=== PATIENT | female | born 1945 | race Hispanic/Latino ===

== ENCOUNTER 2022-12-26 19:39 | Inpatient (IN) | payer BC, MEDICARE ==
[2022-12-26 20:21] LABS: Hemoglobin 14.2 g/dL (12.0-16.0); Mean Corpuscular HGB CONC 34.4 g/dL (32.0-36.0); Mean Corpuscular Hemoglobin 30.8 pg (27.0-31.0); Mean Corpuscular Volume 89.6 fl (78.0-98.0); Mean Platelet Volume 8.4 fL (7.4-10.4); Platelet Count 288 10x3/uL (130-400); RBC Distribution Width 12.6 % (11.5-14.5); Red Blood Cell (RBC) Count 4.62 mill/uL (4.20-5.40); White Blood Cell (WBC) Count 23.4 10x3/uL (4.8-10.8)
[2022-12-26] MEDS ORDERED: Morphine 2 MG/ML VIAL ONE (20:31)
[2022-12-26] MEDS ORDERED: Ondansetron PF 4 MG/2 ML Vial ONE (20:31)
[2022-12-26] MEDS ORDERED: diphenhydrAMINE 50 MG/ML VIAL ONE (20:31)
[2022-12-26] MEDS ORDERED: Famotidine/PF 20 mg/2ml Vial ONE (20:32)
[2022-12-26] MEDS ORDERED: methylPREDNISolone Sod Succ 40 MG VIAL ONE (20:32)
[2022-12-26 20:38] LABS: Band 15 % (5-11); Lymphocytes 11 % (21-51); MDiff Complete? YES; Monocytes 2 % (0-10); Neutrophil 72 % (42-75); Platelet Morphology Comment Appears Adequate; RBC Morphology Normal
[2022-12-26 20:43] LABS: ALT (SGPT) 113 U/L (8-55); AST (SGOT) 175 U/L (5-34); Albumin 4.7 g/dL (3.4-4.8); Alkaline Phosphatase 192 U/L (40-110); Anion Gap 13 mmol/L (10-20); BUN (Urea Nitrogen) 15 mg/dL (9.8-20.1); Bilirubin, Total 1.6 mg/dL (0.2-1.2); Calc. Creatinine Clearance 0 mL/min (70-130); Calcium 9.8 mg/dL (7.8-10.44); Carbon Dioxide 25 mmol/L (23-31); Chloride 104 mmol/L (98-107); Estimated GFR 73; Globulin 3.5 g/dL (2.4-3.5); Glucose 133 mg/dL (83-110); Potassium 3.6 mmol/L (3.5-5.1); Protein, Total 8.2 g/dL (5.8-8.1); Sodium 138 mmol/L (136-145)
[2022-12-26 20:57] LABS: Lipase 7816 U/L (8-78)
[2022-12-26] MEDS ORDERED: Ondansetron ODT 4 MG TAB PO PRN (23:45)
[2022-12-26] MEDS ORDERED: Dextrose 5%-Lactated Ringers 1,000 ML IV SCH (23:45)
[2022-12-26] MEDS ORDERED: Morphine 2 MG/ML VIAL SLOW IVP PRN (23:48)
[2022-12-27] MEDS ORDERED: Ketorolac Tromethamine 30 MG/ML VIAL ONE (01:15)
[2022-12-27 01:55] LABS: Bilirubin Negative (Negative); Blood, Urine Negative (Negative); Clarity Clear (Clear); Glucose, Urine (Dipstick) Normal (Negative); Ketone, Urine 20 mg/dL (Negative); Leukocyte Negative Leu/uL (Negative); Nitrite Negative (Negative); Protein, Urine (Dipstick) Negative (Neg-Trace); Specific Gravity, Urine 1.027 (1.002-1.036); Urobilinogen Normal mg/dL (Less than 2)
[2022-12-27 02:43] VITALS: BMI 29.7
[2022-12-27] MEDS: Famotidine/PF 20 mg/2ml Vial SLOW IVP SCH ×2 (08:05→21:44)
[2022-12-27 08:10] LABS: Hemoglobin 12.1 g/dL (12.0-16.0); Mean Corpuscular Hemoglobin 29.2 pg (27.0-31.0); Mean Corpuscular Volume 91.5 fl (78.0-98.0); Mean Platelet Volume 8.4 fL (7.4-10.4); Platelet Count 273 10x3/uL (130-400); RBC Distribution Width 12.6 % (11.5-14.5); Red Blood Cell (RBC) Count 4.14 mill/uL (4.20-5.40); White Blood Cell (WBC) Count 20.2 10x3/uL (4.8-10.8)
[2022-12-27 08:30] LABS: ALT (SGPT) 229 U/L (8-55); AST (SGOT) 201 U/L (5-34); Albumin 3.8 g/dL (3.4-4.8); Alkaline Phosphatase 180 U/L (40-110); Anion Gap 12 mmol/L (10-20); BUN (Urea Nitrogen) 13 mg/dL (9.8-20.1); Bilirubin, Total 2.5 mg/dL (0.2-1.2); Calc. Creatinine Clearance 71 mL/min (70-130); Calcium 9.6 mg/dL (7.8-10.44); Carbon Dioxide 24 mmol/L (23-31); Chloride 106 mmol/L (98-107); Estimated GFR 78; Globulin 3.2 g/dL (2.4-3.5); Glucose 191 mg/dL (83-110); Potassium 4.4 mmol/L (3.5-5.1); Sodium 138 mmol/L (136-145)
[2022-12-27 08:40] LABS: Band 38 % (5-11); Lymphocytes 9 % (21-51); MDiff Complete? YES; Monocytes 3 % (0-10); Neutrophil 49 % (42-75); RBC Morphology Normal; Reactive Lymphocytes 1 % (0-10)
[2022-12-27 08:43] LABS: Lipase 2717 U/L (8-78)
[2022-12-27] MEDS: Ketorolac Tromethamine 30 MG/ML VIAL IVP PRN ×2 (08:47→15:30)
[2022-12-27] MEDS: Sodium Chloride 0.9% 1,000 ML IV SCH ×3 (08:50→23:00)
[2022-12-27] MEDS: Famotidine 20 MG TAB PO SCH ×2 (08:50→20:30)
[2022-12-27] MEDS: Amlodipine 5 MG TAB PO SCH (08:50)
[2022-12-27] MEDS ORDERED: Meropenem 1 GM in Sodium Chloride 0.9% 100 ML IVPB SCH ×2 (14:00→14:45)
[2022-12-27] MEDS: Ondansetron PF 4 MG/2 ML Vial IVP PRN ×2 (14:43→22:08)
[2022-12-27] MEDS: HYDROcodone/Acetaminophen 5/325 mg Tablet PO PRN (22:09)
[2022-12-27] MEDS: Meropenem 1 GM in Sodium Chloride 0.9% 100 ML IVPB SCH (22:10)
[2022-12-28] MEDS: Meropenem 1 GM in Sodium Chloride 0.9% 100 ML IVPB SCH ×3 (05:52→21:12)
[2022-12-28] MEDS: Ondansetron PF 4 MG/2 ML Vial IVP PRN ×4 (05:56→23:29)
[2022-12-28] MEDS: HYDROcodone/Acetaminophen 5/325 mg Tablet PO PRN ×4 (05:56→23:29)
[2022-12-28 06:51] LABS: #Lymphocytes 3.1 thou/uL (1.20-3.40); #Monocytes 0.5 thou/uL (0.11-0.59); %Basophils 0.2 % (0.0-1.0); %Eosinophils 0.2 % (0.0-10.0); %Monocytes 3.6 % (0.0-10.0); Hemoglobin 10.6 g/dL (12.0-16.0); Mean Corpuscular HGB CONC 33.1 g/dL (32.0-36.0); Mean Corpuscular Hemoglobin 30.3 pg (27.0-31.0); Mean Corpuscular Volume 91.6 fl (78.0-98.0); Mean Platelet Volume 8.7 fL (7.4-10.4); Platelet Count 212 10x3/uL (130-400); RBC Distribution Width 12.6 % (11.5-14.5); White Blood Cell (WBC) Count 14.6 10x3/uL (4.8-10.8)
[2022-12-28 07:14] LABS: ALT (SGPT) 115 U/L (8-55); AST (SGOT) 54 U/L (5-34); Albumin 3.3 g/dL (3.4-4.8); Alkaline Phosphatase 149 U/L (40-110); Anion Gap 9 mmol/L (10-20); BUN (Urea Nitrogen) 19 mg/dL (9.8-20.1); Bilirubin, Total 1.4 mg/dL (0.2-1.2); Calc. Creatinine Clearance 81 mL/min (70-130); Calcium 8.7 mg/dL (7.8-10.44); Carbon Dioxide 25 mmol/L (23-31); Chloride 109 mmol/L (98-107); Estimated GFR 89; Globulin 2.6 g/dL (2.4-3.5); Glucose 93 mg/dL (83-110); Protein, Total 5.9 g/dL (5.8-8.1); Sodium 139 mmol/L (136-145)
[2022-12-28 07:27] LABS: Lipase 1725 U/L (8-78)
[2022-12-28] MEDS: Famotidine 20 MG TAB PO SCH ×2 (08:45→20:04)
[2022-12-28] MEDS: Sodium Chloride 0.9% 1,000 ML IV SCH ×2 (08:55→11:26)
[2022-12-28] MEDS: Famotidine/PF 20 mg/2ml Vial SLOW IVP SCH ×2 (09:23→21:16)
[2022-12-28] MEDS: Dextrose 5 % And 0.9 % NaCl 1,000 ML IV SCH (17:28)
[2022-12-28] MEDS: Amlodipine 5 MG TAB PO SCH (17:28)
[2022-12-28] MEDS: Acetaminophen 325 MG TAB PO PRN (21:11)
[2022-12-29] MEDS: Dextrose 5 % And 0.9 % NaCl 1,000 ML IV SCH ×3 (03:05→17:03)
[2022-12-29] MEDS: Ondansetron PF 4 MG/2 ML Vial IVP PRN (05:43)
[2022-12-29] MEDS: Meropenem 1 GM in Sodium Chloride 0.9% 100 ML IVPB SCH ×3 (05:43→21:45)
[2022-12-29] MEDS: HYDROcodone/Acetaminophen 5/325 mg Tablet PO PRN (05:44)
[2022-12-29 07:42] LABS: #Lymphocytes 1.8 thou/uL (1.20-3.40); #Monocytes 0.7 thou/uL (0.11-0.59); %Basophils 0.3 % (0.0-1.0); %Eosinophils 0.3 % (0.0-10.0); %Lymphocytes 12.2 % (21.0-51.0); %Monocytes 4.8 % (0.0-10.0); %Neutrophils 82.4 % (42.0-75.0); Hemoglobin 10.6 g/dL (12.0-16.0); Mean Corpuscular HGB CONC 33.2 g/dL (32.0-36.0); Mean Corpuscular Volume 90.5 fl (78.0-98.0); Mean Platelet Volume 8.5 fL (7.4-10.4); Platelet Count 210 10x3/uL (130-400); RBC Distribution Width 12.5 % (11.5-14.5); Red Blood Cell (RBC) Count 3.52 mill/uL (4.20-5.40); White Blood Cell (WBC) Count 14.5 10x3/uL (4.8-10.8)
[2022-12-29 08:00] LABS: ALT (SGPT) 75 U/L (8-55); AST (SGOT) 23 U/L (5-34); Albumin 3.3 g/dL (3.4-4.8); Alkaline Phosphatase 145 U/L (40-110); Anion Gap 10 mmol/L (10-20); BUN (Urea Nitrogen) 6 mg/dL (9.8-20.1); Bilirubin, Total 0.9 mg/dL (0.2-1.2); Calc. Creatinine Clearance 91 mL/min (70-130); Calcium 8.6 mg/dL (7.8-10.44); Carbon Dioxide 26 mmol/L (23-31); Chloride 101 mmol/L (98-107); Estimated GFR 91; Globulin 2.8 g/dL (2.4-3.5); Glucose 102 mg/dL (83-110); Lipase 400 U/L (8-78); Potassium 3.3 mmol/L (3.5-5.1); Protein, Total 6.1 g/dL (5.8-8.1); Sodium 134 mmol/L (136-145)
[2022-12-29] MEDS ORDERED: Morphine ER 15 MG TAB PO SCH (09:45)
[2022-12-29] MEDS ORDERED: Potassium Chloride 20 MEQ TAB PO SCH (09:45)
[2022-12-29] MEDS: Famotidine/PF 20 mg/2ml Vial SLOW IVP SCH ×2 (09:56→23:04)
[2022-12-29] MEDS: Amlodipine 5 MG TAB PO SCH (09:56)
[2022-12-29] MEDS: Famotidine 20 MG TAB PO SCH ×2 (09:57→20:13)
[2022-12-29 11:04] LABS: INR-International Normal Ratio 1.1; PTT 30.3 sec (22.9-36.1); Prothrombin Time 14.5 sec (12.0-14.7)
[2022-12-29] MEDS ORDERED: fentaNYL PF 100 MCG/2 ML SYRINGE ONE (11:26)
[2022-12-29] MEDS ORDERED: Bupivacaine/Epinephrine 0.25% 30 ML VIAL ONE (11:34)
[2022-12-29] MEDS ORDERED: Iopamidol 15 ML ONE (11:35)
[2022-12-29] MEDS ORDERED: Rocuronium Bromide 10 MG/ML (10ML VIAL) ONE (12:13)
[2022-12-29] MEDS ORDERED: GLYCOPYRROLATE/PF 0.2 MG/ML VIAL ONE (12:13)
[2022-12-29] MEDS ORDERED: Dexamethasone 20 MG/5 ML VIAL ONE (12:13)
[2022-12-29] MEDS ORDERED: Lidocaine 1% PF 5 ML VIAL ONE (12:13)
[2022-12-29] MEDS ORDERED: NEOSTIGMINE 3 MG/3 ML SYR 3 MG/3 ML SYRINGE ONE (12:13)
[2022-12-29] MEDS ORDERED: Ondansetron PF 4 MG/2 ML Vial ONE (12:13)
[2022-12-29] MEDS ORDERED: PROPOFOL 200 MG/20 ML VIAL ONE (12:13)
[2022-12-29] MEDS ORDERED: FENTANYL 50 MCG/ML 1 ML VIAL ONE (14:35)
[2022-12-29] MEDS: Morphine ER 15 MG TAB PO SCH (20:07)
[2022-12-30] MEDS: Dextrose 5 % And 0.9 % NaCl 1,000 ML IV SCH ×2 (02:47→11:30)
[2022-12-30] MEDS: Meropenem 1 GM in Sodium Chloride 0.9% 100 ML IVPB SCH ×2 (05:32→14:00)
[2022-12-30] MEDS: Famotidine 20 MG TAB PO SCH (08:27)
[2022-12-30] MEDS: Morphine ER 15 MG TAB PO SCH (08:28)
[2022-12-30] MEDS: Famotidine/PF 20 mg/2ml Vial SLOW IVP SCH (08:28)
[2022-12-30] MEDS: Amlodipine 5 MG TAB PO SCH (08:28)
[2022-12-30] MEDS ORDERED: traMADol HCl 50 MG TAB PO PRN (10:09)
[2022-12-30 10:47] LABS: #Lymphocytes 1.4 thou/uL (1.20-3.40); #Monocytes 0.4 thou/uL (0.11-0.59); #Neutrophils 8.2 thou/uL (1.40-6.50); %Basophils 0.1 % (0.0-1.0); %Monocytes 3.6 % (0.0-10.0); %Neutrophils 82.3 % (42.0-75.0); Mean Corpuscular HGB CONC 33.1 g/dL (32.0-36.0); Mean Corpuscular Hemoglobin 30.5 pg (27.0-31.0); Mean Platelet Volume 8.9 fL (7.4-10.4); Platelet Count 256 10x3/uL (130-400); RBC Distribution Width 12.5 % (11.5-14.5); Red Blood Cell (RBC) Count 3.61 mill/uL (4.20-5.40)
[2022-12-30 11:31] LABS: ALT (SGPT) 63 U/L (8-55); AST (SGOT) 35 U/L (5-34); Albumin 3.2 g/dL (3.4-4.8); Alkaline Phosphatase 141 U/L (40-110); Anion Gap 11 mmol/L (10-20); BUN (Urea Nitrogen) 7 mg/dL (9.8-20.1); Bilirubin, Direct 0.3 mg/dL (0.1-0.3); Bilirubin, Total 0.5 mg/dL (0.2-1.2); Calc. Creatinine Clearance 91 mL/min (70-130); Calcium 8.9 mg/dL (7.8-10.44); Carbon Dioxide 27 mmol/L (23-31); Chloride 103 mmol/L (98-107); Estimated GFR 91; Globulin 3.3 g/dL (2.4-3.5); Glucose 112 mg/dL (83-110); Lipase 73 U/L (8-78); Potassium 3.9 mmol/L (3.5-5.1); Protein, Total 6.5 g/dL (5.8-8.1); Sodium 137 mmol/L (136-145)
[2022-12-30] MEDS ORDERED: traMADol HCl 50 MG TAB PO SCH (12:00)
[2022-12-30 12:33] LABS: ALT (SGPT) 71 U/L (8-55); AST (SGOT) 36 U/L (5-34); Albumin 3.7 g/dL (3.4-4.8); Alkaline Phosphatase 151 U/L (40-110); Bilirubin, Direct 0.3 mg/dL (0.1-0.3); Bilirubin, Total 0.6 mg/dL (0.2-1.2); Lipase 110 U/L (8-78); Protein, Total 7.6 g/dL (5.8-8.1)
[2022-12-30] MEDS: Acetaminophen 325 MG TAB PO PRN (16:11)
[2022-12-30 17:18] VITALS: BP 137/68; TEMP 98
== END 2022-12-30 17:00 | disposition home or self-care (01) | DRG 417 ==
LOC: ERS 19:39 → T4-A 23:33
PROVIDERS: ADMIT Student in an Organized Health Care Education/Training Program; ATTEND Internal Medicine
PROC: 0FT44ZZ Resection of Gallbladder, Percutaneous Endoscopic Approach (ICD-10-PCS; principal; 2022-12-29)
PROC: BF141ZZ Fluoroscopy of Gallbladder, Bile Ducts and Pancreatic Ducts using Low Osmolar Contrast (ICD-10-PCS; 2022-12-29)
DX: K80.00 Calculus of gallbladder with acute cholecystitis without obstruction (principal); K85.10 Biliary acute pancreatitis without necrosis or infection; E87.1 Hypo-osmolality and hyponatremia; I10 Essential (primary) hypertension; Z96.21 Cochlear implant status; E89.0 Postprocedural hypothyroidism; E87.6 Hypokalemia; E78.00 Pure hypercholesterolemia, unspecified; E88.09 Other disorders of plasma-protein metabolism, not elsewhere classified; K76.0 Fatty (change of) liver, not elsewhere classified; Z96.653 Presence of artificial knee joint, bilateral; D72.829 Elevated white blood cell count, unspecified; Z90.710 Acquired absence of both cervix and uterus; Z98.890 Other specified postprocedural states; Z91.041 Radiographic dye allergy status; Z79.82 Long term (current) use of aspirin; Z79.899 Other long term (current) drug therapy
CPT/HCPCS: 36415; 47532; 74177; 74181; 76705; 80053; 81003; 82248; 83605; 83690; 84478; 84484; 85025; 85610; 85730; 86850; 86900; 86901; 87040; 88304; 93005; C1889; J1100; J1200; J1885; J2185; J2272; J2405; J2704; J2920; J3010; J3490; J7042; J7050; Q9967; S0028